=== PATIENT | female | born 1995 | race Two or more races ===

== ENCOUNTER 2023-07-10 09:44 | Emergency (ER) | payer MEDICAID ==
[~2023-07-10] VITALS: Ht 162.6 cm; Wt 56.4 kg
[2023-07-10 10:29] LABS: Hemoglobin 13.8 g/dL (12.2-16.2); Mean Corpuscular Hemoglobin 27.5 pg (28.0-32.0); Mean Corpuscular Hgb Conc. 32.9 g/dL (32.0-36.0); Mean Corpuscular Volume 83.6 fL (80.0-100.0); Red Blood Cells 5.03 10^6/uL (4.0-5.20); Red Cell Distribution Width 13.7 % (11.8-14.3); White Blood Cell 8.7 10^3/uL (4.4-10.8)
[2023-07-10 10:51] LABS: Albumin 4.5 g/dL (3.4-5.0); Calcium 8.4 mg/dL (8.5-10.1); Potassium 3.3 mmol/L (3.5-5.1)
[2023-07-10 10:53] LABS: BUN/Creatinine Ratio 10.3 (10.0-20.0); Bilirubin, Total 0.5 mg/dL (0.2-1.0); Total Protein 8.8 g/dL (6.4-8.2)
[2023-07-10 10:59] LABS: Urine Bacteria MANY /hpf (None Seen); Urine Blood Negative /uL (Negative); Urine Clarity HAZY (Clear); Urine Color Straw (Yellow); Urine Protein, UAD Negative (Negative); Urine Specific Gravity 1.005 (1.001-1.035); Urine Urobilinogen Normal (Negative); Urine WBC 2 /hpf (0 - 5); Urine pH 5.5 (5.0-8.0)
[2023-07-10 11:05] LABS: Band Neutrophils % (manual) 0; Basophils % (manual) 0 (0.0-2.0); Blast Cells 0; Metamyelocytes % 0; Myelocytes % 0; Promyelocytes % 0; Reactive Lymphocytes 0
[2023-07-10 11:34] LABS: Eosinophils % (manual) 17 (0-7); Lymphocytes % (manual) 31 (10.0-50.0); Monocytes % (manual) 9 (0-12); Platelet Estimate Adequate
[2023-07-10] MEDS ORDERED: IOHEXOL 300 MG/ML 100ML BOTTLE IJ ONE (12:29)
[2023-07-10] MEDS ORDERED: POTASSIUM EFFERVESENT TAB 25 MEQ PO ONE (12:30)
[2023-07-10 14:06] VITALS: BP 105/59; PULSE 69; RESP 17; TEMP 98.5; O2SAT 99
[2023-07-10] MEDS ORDERED: DICL50TA2 PO (15:24)
== END 2023-07-10 15:33 | disposition home or self-care (01) ==
LOC: ER 09:44
DX: N83.201 Unspecified ovarian cyst, right side (principal); J45.909 Unspecified asthma, uncomplicated; Z90.49 Acquired absence of other specified parts of digestive tract
CPT/HCPCS: 36415; 74177; 80053; 81001; 81025; 85007; 85027; 99285; Q9967

== ENCOUNTER 2024-02-04 12:08 | Emergency (ER) | payer MEDICAID ==
[~2024-02-04] VITALS: Ht 162.6 cm; Wt 63.3 kg
[~2024-02-04 12:08] MED LIST: DICL50TA2 PO
[2024-02-04 12:20] VITALS: BP 144/97; PULSE 74; RESP 16; O2SAT 100
[2024-02-04 12:59] LABS: Amphetamine Screen, Urine Neg (NEGATIVE); Barbiturate Scree,Urine Neg (NEGATIVE); Benzodiazephine Screen, Urine Neg (NEGATIVE); Cannabinoid Screen, Urine Pos (NEGATIVE); Cocaine Screen, Urine Neg (NEGATIVE); Opiate Scree,Urine Neg (NEGATIVE); Urine Bacteria FEW /hpf (None Seen); Urine Blood 3+ /uL (Negative); Urine Clarity HAZY (Clear); Urine Protein, UAD Negative (Negative); Urine Specific Gravity 1.007 (1.001-1.035); Urine Urobilinogen Normal (Negative); Urine WBC 1 /hpf (0 - 5); Urine pH 5.5 (5.0-8.0)
[2024-02-04 13:00] LABS: Phencyclidine Screen, Urine Neg (NEGATIVE); Urine Color Straw (Yellow)
[2024-02-04 13:07] LABS: Basophils # (auto) 0 10 ^3/uL (0-0.2); Basophils % (auto) 0.3 % (0.0-2.0); Eosinophils # (auto) 0.3 10 ^3/uL (0-0.8); Eosinophils % (auto) 5.1 % (0.0-7.0); Hematocrit 42.4 % (36.0-46.0); Hemoglobin 13.6 g/dL (12.2-16.2); Lymphocytes # (auto) 2.2 10 ^3/uL (0.4-5.4); Lymphocytes % (auto) 33.2 % (10.0-50.0); Mean Corpuscular Hemoglobin 27.7 pg (28.0-32.0); Mean Corpuscular Hgb Conc. 32.1 g/dL (32.0-36.0); Mean Corpuscular Volume 86.3 fL (80.0-100.0); Monocytes # (auto) 0.5 10 ^3/uL (0-1.3); Monocytes % (auto) 6.8 % (0.0-12.0); Neutrophils # (auto) 3.6 10 ^3/uL (1.6-8.6); Neutrophils % (auto) 54.6 % (37.0-80.0); Nucleated Red Blood Cells % 0.1 %; Red Blood Cells 4.91 10^6/uL (4.0-5.20); Red Cell Distribution Width 14.4 % (11.8-14.3); White Blood Cell 6.6 10^3/uL (4.4-10.8)
[2024-02-04 13:23] LABS: Alanine Aminotransferase 18 U/L (7-40); Albumin 4.8 g/dL (3.2-4.8); Alkaline Phosphatase 53 U/L (46-116); Anion Gap 8 (5-15); Aspartate Aminotransferase 16 U/L (13-40); BUN/Creatinine Ratio 11.4 (10.0-20.0); Bilirubin, Total 0.7 mg/dL (0.2-1.0); Blood Urea Nitrogen 8 mg/dL (9-23); Calcium 10.2 mg/dL (8.7-10.4); Carbon Dioxide 26 mmol/L (20-30); Chloride 105 mmol/L (98-107); Glucose 90 mg/dL (74-106); Lipase 37 U/L (12-53); Potassium 4.1 mmol/L (3.5-5.1); Sodium 139 mmol/L (136-145); Total Protein 7.7 g/dL (5.7-8.2)
[2024-02-04] MEDS ORDERED: HYDROcodone-ACET 5/325MG TAB PO ONE (16:15)
[2024-02-04] MEDS ORDERED: ONDANSETRON ODT 4 MG TAB PO ONE (16:15)
[2024-02-04] MEDS ORDERED: CIPR-173 PO (16:29)
== END 2024-02-04 23:45 | disposition home or self-care (01) ==
LOC: ER 12:08
DX: D25.9 Leiomyoma of uterus, unspecified (principal); R10.2 Pelvic and perineal pain; J45.909 Unspecified asthma, uncomplicated; Z90.49 Acquired absence of other specified parts of digestive tract; Z79.2 Long term (current) use of antibiotics; Z79.899 Other long term (current) drug therapy
CPT/HCPCS: 36415; 74176; 80053; 80307; 81001; 83605; 83690; 84484; 84702; 85025

== ENCOUNTER 2024-09-02 08:20 | Emergency (ER) | payer MEDICAID ==
[~2024-09-02] VITALS: Ht 162.6 cm; Wt 62.4 kg
[~2024-09-02 08:20] MED LIST changes: +CIPR-173 PO
[2024-09-02 08:46] LABS: Urine Bacteria None Seen /hpf (None Seen)
[2024-09-02] MEDS: KETOROLAC TROMETH 30 MG/ML 1ML VIAL IV ONE (08:58)
[2024-09-02 09:00] LABS: Hematocrit 38.5 % (36.0-46.0); Hemoglobin 12.8 g/dL (12.2-16.2); Mean Corpuscular Hemoglobin 28.1 pg (28.0-32.0); Mean Corpuscular Hgb Conc. 33.3 g/dL (32.0-36.0); Mean Corpuscular Volume 84.4 fL (80.0-100.0); Platelet Count (auto) 272 10^3/uL (140-450); Red Blood Cells 4.56 10^6/uL (4.0-5.20); Red Cell Distribution Width 13.6 % (11.8-14.3); White Blood Cell 11.9 10^3/uL (4.4-10.8)
[2024-09-02 09:01] LABS: Urine Blood Negative /uL (Negative); Urine Clarity Turbid (Clear); Urine Color Colorless (Yellow); Urine Mucus FEW (None Seen); Urine Protein, UAD Negative (Negative); Urine Specific Gravity 1.006 (1.001-1.035); Urine Urobilinogen Normal (Negative); Urine WBC 1 /hpf (0 - 5); Urine pH 5.5 (5.0-9.0)
[2024-09-02 09:03] VITALS: RESP 18; O2SAT 98
[2024-09-02 09:04] LABS: Band Neutrophils % (manual) 0; Basophils % (manual) 0 (0.0-2.0); Blast Cells 0; Metamyelocytes % 0; Myelocytes % 0; Promyelocytes % 0; Reactive Lymphocytes 0
[2024-09-02 09:05] LABS: Chloride 110 mmol/L (98-107); Potassium 3.8 mmol/L (3.5-5.1); Sodium 141 mmol/L (136-145)
[2024-09-02 09:06] LABS: Anion Gap 6 (5-15); Carbon Dioxide 25 mmol/L (20-31)
[2024-09-02 09:07] LABS: Calcium 9.4 mg/dL (8.7-10.4)
[2024-09-02 09:11] VITALS: BP 115/78; PULSE 79; RESP 18; TEMP 98.6; O2SAT 100
[2024-09-02 09:11] LABS: BUN/Creatinine Ratio 11.1 (10.0-20.0); Blood Urea Nitrogen 7 mg/dL (9-23); Glucose 94 mg/dL (74-106)
[2024-09-02 09:27] LABS: Eosinophils % (manual) 23 (0-7); Lymphocytes % (manual) 17 (10.0-50.0); Monocytes % (manual) 6 (0-12); Platelet Estimate Adequate; RBC Morphology Normal
[2024-09-02] MEDS ORDERED: HYDR-4902 PO (10:38)
== END 2024-09-02 10:50 | disposition home or self-care (01) ==
LOC: ER 08:20
DX: R10.31 Right lower quadrant pain (principal); R19.7 Diarrhea, unspecified; J45.909 Unspecified asthma, uncomplicated; D72.829 Elevated white blood cell count, unspecified; F17.200 Nicotine dependence, unspecified, uncomplicated; F12.10 Cannabis abuse, uncomplicated; Z90.49 Acquired absence of other specified parts of digestive tract; Z98.51 Tubal ligation status; Z32.02 Encounter for pregnancy test, result negative
CPT/HCPCS: 36415; 74176; 80048; 81001; 81025; 85007; 85027; 96374; 99285; J1885